=== PATIENT | female | born 1950 | race Caucasian/White ===

== ENCOUNTER 2018-02-02 15:15 | Inpatient (IN) ==
[2018-02-02] MEDS ORDERED: ONDANSETRON 4 MG/2 ML VIAL IV STA (16:33)
[2018-02-02] MEDS ORDERED: KETOROLAC 30 MG/1 ML VIAL IV STA (16:33)
[2018-02-02] MEDS ORDERED: SODIUM CHLORIDE 0.9% 1,000 ML IV STA (16:33)
[2018-02-02] MEDS ORDERED: cefTRIAXone 1,000 MG in SODIUM CHLORIDE 0.9% 100 ML IV STA (16:56)
[2018-02-02 17:33] LABS: Basophils % 0.6 % (0.0-0.8); Eosinophils # 0.1 10*3/uL (0.0-0.87); Eosinophils % 1.7 % (0.00-10.9); Hematocrit 22.2 VOL% (35.7-47.0); Immature Granulocytes % 0.3 %; Immature Granulocytes Absolute 0.01 #; Lymphocytes # 0.8 10*3/uL (1.4-4.0); Lymphocytes % 21.2 % (21.3-54.2); Mean Corpuscular HGB Conc 28.4 GM/DL (32-36); Mean Corpuscular Hemoglobin 21 PG (27-34); Mean Corpuscular Volume 73.5 FL (87-102); Mean Platelet Volume 10.5 FL (9.6-12.0); Monocytes # 0.5 10*3/uL (0.11-0.8); Monocytes % 13.6 % (1.7-12.7); Neutrophils # 2.2 10*3/uL (1.4-7.4); Neutrophils % 62.6 % (38.7-73.9); Platelet Count 97 T/CUMM (130-400); Red Blood Count 3.02 MC/CUMM (3.8-5.5); Red Cell Distribution Width 18.2 % (9.3-17.3); White Blood Count 3.5 T/CUMM (4-12)
[2018-02-02 17:37] LABS: Hemoglobin 6.3 GM/DL (12.0-16.0)
[2018-02-02 17:40] LABS: INR 1.1; PT Patient Result 11.5 SECS
[2018-02-02 17:50] LABS: Eosinophils 1 % (0-10); Hypochromasia 2+; Lymphocytes 26 % (20-55); Platelet Estimate Decreased; Segmented Neutrophils 67 % (50-85); Total Cells Counted 100
[2018-02-02 17:56] LABS: Alanine Aminotransferase 22 U/L (13-56); Alkaline Phosphatase 88 U/L (45-117); Aspartate Amino Transferase 35 U/L (0-37); Blood Urea Nitrogen 13 MG/DL (7-18); Calcium 7.7 MG/DL (8.5-10.1); Glucose 107 MG/DL (74-106); Osmolality,Calculated 282.1 MOS/KG (273-304); Potassium 4.2 MMOL/L (3.5-5.1); Sodium 142 MMOL/L (136-145); Total Protein 6.6 G/DL (6.4-8.3)
[2018-02-02] MEDS ORDERED: SODIUM CHLORIDE 0.9% 1,000 ML IV PRN (18:26)
[2018-02-02 18:27] LABS: Folate 17.5 NG/ML (5.4-24.0); Vitamin B12 823 PG/ML (211-911)
[2018-02-02] MEDS ORDERED: MORPHINE 4 MG/1 ML VIAL IV PRN (18:27)
[2018-02-02] MEDS ORDERED: SODIUM CHLORIDE 0.9% 1,000 ML IV SCH (18:30)
[2018-02-02 19:47] LABS: Apearance,Urine CLOUDY (Clear); Bilirubin,Urine Negative (Negative); Blood, Urine Negative (Negative); Glucose,Urine (UA) Negative (Negative); Hyaline Casts,Urine 19 /LPF (0-3); Ketones,Urine Negative (Negative); Nitrite,Urine Negative (Negative); Protein,Urine 100 MG/DL; RBC,Urine 1 /HPF (0-4); Squamous Epithelial Cell,Urine Occasional /HPF (0-10); Urine Color Dark yellow (Yellow); Urine Specific Gravity 1.014 (1.001-1.035); WBC,Urine 4 /HPF (0-6)
[2018-02-02 20:27] LABS: Basophils % 0.6 % (0.0-0.8); Eosinophils # 0.1 10*3/uL (0.0-0.87); Eosinophils % 1.7 % (0.00-10.9); Hematocrit 20.1 VOL% (35.7-47.0); Immature Granulocytes % 0.6 %; Immature Granulocytes Absolute 0.02 #; Lymphocytes # 0.7 10*3/uL (1.4-4.0); Lymphocytes % 19.5 % (21.3-54.2); Mean Corpuscular HGB Conc 29.4 GM/DL (32-36); Mean Corpuscular Hemoglobin 21 PG (27-34); Mean Corpuscular Volume 72.8 FL (87-102); Mean Platelet Volume 10.5 FL (9.6-12.0); Monocytes # 0.4 10*3/uL (0.11-0.8); Monocytes % 11.5 % (1.7-12.7); Neutrophils # 2.3 10*3/uL (1.4-7.4); Neutrophils % 66.1 % (38.7-73.9); Platelet Count 89 T/CUMM (130-400); Red Blood Count 2.76 MC/CUMM (3.8-5.5); Red Cell Distribution Width 18.4 % (9.3-17.3); White Blood Count 3.5 T/CUMM (4-12)
[2018-02-02 20:31] LABS: Hemoglobin 5.9 GM/DL (12.0-16.0)
[2018-02-02 20:44] LABS: Hypochromasia 2+; Platelet Estimate Decreased
[2018-02-02 20:45] LABS: Elliptocytes Few
[2018-02-02 21:30] LABS: Sedimentation Rate-Westergren 17 MM/HR (0-30)
[2018-02-02] MEDS: CALCIUM (CARBONATE)/VITAMIN D 600 MG-400 UNIT TABLET PO SCH (22:01)
[2018-02-03] MEDS ORDERED: ceFAZolin 2,000 MG in PREMIX 1 EACH IV ONE (06:00)
[2018-02-03 06:55] LABS: Basophils # 0.1 10*3/uL (0.0-0.2); Basophils % 1.1 % (0.0-0.8); Eosinophils # 0.1 10*3/uL (0.0-0.87); Eosinophils % 2.8 % (0.00-10.9); Hematocrit 25.4 VOL% (35.7-47.0); Immature Granulocytes % 0.2 %; Immature Granulocytes Absolute 0.01 #; Lymphocytes # 1.3 10*3/uL (1.4-4.0); Lymphocytes % 27.5 % (21.3-54.2); Mean Corpuscular HGB Conc 30.3 GM/DL (32-36); Mean Corpuscular Hemoglobin 23 PG (27-34); Mean Corpuscular Volume 75.1 FL (87-102); Mean Platelet Volume 11.5 FL (9.6-12.0); Monocytes # 0.6 10*3/uL (0.11-0.8); Monocytes % 12.9 % (1.7-12.7); Neutrophils # 2.6 10*3/uL (1.4-7.4); Neutrophils % 55.5 % (38.7-73.9); Red Cell Distribution Width 18.1 % (9.3-17.3)
[2018-02-03] MEDS ORDERED: FAMOTIDINE 20 MG/2 ML VIAL IV ONE (06:56)
[2018-02-03 06:59] LABS: Hemoglobin 7.7 GM/DL (12.0-16.0); Red Blood Count 3.38 MC/CUMM (3.8-5.5); White Blood Count 4.7 T/CUMM (4-12)
[2018-02-03 07:00] LABS: Platelet Count 88 T/CUMM (130-400)
[2018-02-03 07:14] LABS: Albumin 2.6 G/DL (3.4-5.0); Bilirubin,Total 1.7 MG/DL (0.2-1.0); Calcium 7.5 MG/DL (8.5-10.1); Osmolality,Calculated 280.3 MOS/KG (273-304); Potassium 4.1 MMOL/L (3.5-5.1); Total Protein 6.3 G/DL (6.4-8.3)
[2018-02-03 07:35] LABS: Lymphocytes 13 % (20-55); Metamyelocytes 1 %; Platelet Estimate Decreased; Polychromasia Few; Segmented Neutrophils 85 % (50-85); Total Cells Counted 100
[2018-02-03] MEDS ORDERED: LACTULOSE 20 GM/30 ML UDCUP PO PRN (08:42)
[2018-02-03] MEDS ORDERED: NALOXONE 0.4 MG/ML VIAL IV PRN (08:42)
[2018-02-03] MEDS ORDERED: PROMETHAZINE 25 MG/1 ML VIAL IM PRN (08:42)
[2018-02-03] MEDS ORDERED: BISACODYL 10 MG SUPP RECTAL PRN (08:42)
[2018-02-03] MEDS ORDERED: ONDANSETRON 4 MG/2 ML VIAL IV PRN (08:42)
[2018-02-03] MEDS ORDERED: MAGNESIUM HYDROXIDE SUSP 30 ML UDCUP PO PRN (08:42)
[2018-02-03] MEDS ORDERED: MORPHINE 4 MG/1 ML VIAL IV PRN ×2 (08:48→08:57)
[2018-02-03 09:00] LABS: Hemoglobin A1 (Alkaline) 97.9 % (96.5-98.5); Hemoglobin A2 (Alkaline) 2.1 % (1.5-3.5)
[2018-02-03] MEDS: CALCIUM (CARBONATE)/VITAMIN D 600 MG-400 UNIT TABLET PO SCH ×2 (09:00→20:55)
[2018-02-03] MEDS ORDERED: MORPHINE PCA 30 MG/30 ML SYRINGE IV ONE (09:00)
[2018-02-03] MEDS: MORPHINE PCA 30 MG/30 ML SYRINGE IV SCH (09:04)
[2018-02-03] MEDS ORDERED: PROPOFOL 200 MG/20 ML VIAL IV ONE (09:04)
[2018-02-03] MEDS ORDERED: ePHEDrine 50 MG/ML AMP ONE (09:05)
[2018-02-03] MEDS ORDERED: SEVOFLURANE 1 UNIT/15 MINUTE INH ONE (09:05)
[2018-02-03] MEDS ORDERED: MIDAZOLAM 2 MG/2 ML VIAL ONE (09:05)
[2018-02-03] MEDS ORDERED: fentaNYL 100 MCG/2 ML VIAL ONE (09:05)
[2018-02-03] MEDS ORDERED: ONDANSETRON 4 MG/2 ML VIAL ONE (09:06)
[2018-02-03] MEDS ORDERED: LACTATED RINGERS 1,000 ML IV ONE (09:06)
[2018-02-03] MEDS ORDERED: ACETAMINOPHEN 1,000 MG/100 ML VIAL IV ONE (09:06)
[2018-02-03 11:44] LABS: Total Protein 6.4 G/DL (6.4-8.3)
[2018-02-03] MEDS: ESCITALOPRAM 10 MG TABLET PO SCH (14:34)
[2018-02-03] MEDS: PANTOPRAZOLE 40 MG TABLET PO SCH (14:34)
[2018-02-03] MEDS: LOSARTAN 50 MG TABLET PO SCH (14:34)
[2018-02-03] MEDS: ceFAZolin 1,000 MG in SYRINGE 1 EACH IV SCH ×2 (14:35→22:52)
[2018-02-03] MEDS: SODIUM CHLORIDE 0.45% 1,000 ML IV SCH ×3 (20:58→21:00)
[2018-02-04] MEDS: SODIUM CHLORIDE 0.45% 1,000 ML IV SCH ×2 (05:05→17:25)
[2018-02-04 06:01] LABS: Basophils # 0.1 10*3/uL (0.0-0.2); Basophils % 0.7 % (0.0-0.8); Eosinophils # 0.1 10*3/uL (0.0-0.87); Eosinophils % 1.3 % (0.00-10.9); Hematocrit 23.7 VOL% (35.7-47.0); Hemoglobin 7.1 GM/DL (12.0-16.0); Immature Granulocytes % 0.6 %; Immature Granulocytes Absolute 0.05 #; Lymphocytes # 1.1 10*3/uL (1.4-4.0); Lymphocytes % 12.9 % (21.3-54.2); Mean Corpuscular Hemoglobin 23 PG (27-34); Mean Corpuscular Volume 76.9 FL (87-102); Mean Platelet Volume 10.8 FL (9.6-12.0); Monocytes # 1.1 10*3/uL (0.11-0.8); Monocytes % 13.1 % (1.7-12.7); Neutrophils # 6.1 10*3/uL (1.4-7.4); Neutrophils % 71.4 % (38.7-73.9); Red Blood Count 3.08 MC/CUMM (3.8-5.5); White Blood Count 8.6 T/CUMM (4-12)
[2018-02-04 06:03] LABS: Platelet Count 94 T/CUMM (130-400)
[2018-02-04 06:24] LABS: Calcium 7.5 MG/DL (8.5-10.1); Osmolality,Calculated 281.3 MOS/KG (273-304); Potassium 4.1 MMOL/L (3.5-5.1)
[2018-02-04 06:28] LABS: Albumin 2.7 G/DL (3.4-5.0); Bilirubin,Total 1.2 MG/DL (0.2-1.0); Calcium 7.3 MG/DL (8.5-10.1); Osmolality,Calculated 279.4 MOS/KG (273-304)
[2018-02-04] MEDS ORDERED: ALBUTEROL/IPRATROPIUM 3 ML NEB RESP TX PRN (06:53)
[2018-02-04] MEDS: ceFAZolin 1,000 MG in SYRINGE 1 EACH IV SCH (07:02)
[2018-02-04 07:26] LABS: Hepatitis A Ab IgM Quant 0.27 Index; Hepatitis A Ab IgM Result Negative (Negative); Hepatitis B Core IgM Quant < 0.05 Index; Hepatitis B Core IgM Result Negative (Negative); Hepatitis B Surface Ag Quant < 0.10 Index; Hepatitis B Surface Ag Result Negative (Negative); Hepatitis C Virus Ab Quant > 11.00 Index; Hepatitis C Virus Ab Result Positive (Negative)
[2018-02-04] MEDS: CALCIUM (CARBONATE)/VITAMIN D 600 MG-400 UNIT TABLET PO SCH ×2 (09:26→20:36)
[2018-02-04] MEDS: PANTOPRAZOLE 40 MG TABLET PO SCH (09:27)
[2018-02-04] MEDS: ESCITALOPRAM 10 MG TABLET PO SCH (09:27)
[2018-02-04] MEDS: LOSARTAN 50 MG TABLET PO SCH (09:30)
[2018-02-04] MEDS ORDERED: MORPHINE PCA 30 MG/30 ML SYRINGE IV ONE (10:57)
[2018-02-04] MEDS: MORPHINE PCA 30 MG/30 ML SYRINGE IV SCH (11:01)
[2018-02-04] MEDS: FERROUS SULFATE 325 MG TABLET PO SCH (20:36)
[2018-02-05 05:40] LABS: Basophils % 0.4 % (0.0-0.8); Eosinophils # 0.1 10*3/uL (0.0-0.87); Eosinophils % 1.9 % (0.00-10.9); Hematocrit 23.2 VOL% (35.7-47.0); Hemoglobin 6.7 GM/DL (12.0-16.0); Immature Granulocytes % 0.5 %; Immature Granulocytes Absolute 0.03 #; Lymphocytes % 16.7 % (21.3-54.2); Mean Corpuscular HGB Conc 28.9 GM/DL (32-36); Mean Corpuscular Hemoglobin 22 PG (27-34); Mean Corpuscular Volume 76.6 FL (87-102); Monocytes # 0.8 10*3/uL (0.11-0.8); Monocytes % 14.8 % (1.7-12.7); Neutrophils # 3.7 10*3/uL (1.4-7.4); Neutrophils % 65.7 % (38.7-73.9); Red Blood Count 3.03 MC/CUMM (3.8-5.5); Red Cell Distribution Width 18.7 % (9.3-17.3); White Blood Count 5.7 T/CUMM (4-12)
[2018-02-05 05:43] LABS: Platelet Count 77 T/CUMM (130-400)
[2018-02-05] MEDS ORDERED: SODIUM CHLORIDE 0.9% 1,000 ML IV PRN (07:08)
[2018-02-05] MEDS: MORPHINE PCA 30 MG/30 ML SYRINGE IV SCH (09:00)
[2018-02-05] MEDS: CALCIUM (CARBONATE)/VITAMIN D 600 MG-400 UNIT TABLET PO SCH ×2 (09:38→22:08)
[2018-02-05] MEDS: ESCITALOPRAM 10 MG TABLET PO SCH (09:39)
[2018-02-05] MEDS: PANTOPRAZOLE 40 MG TABLET PO SCH (09:39)
[2018-02-05] MEDS: FERROUS SULFATE 325 MG TABLET PO SCH ×2 (09:39→22:08)
[2018-02-05] MEDS: LOSARTAN 50 MG TABLET PO SCH (09:39)
[2018-02-06 05:41] LABS: Basophils % 0.6 % (0.0-0.8); Eosinophils # 0.1 10*3/uL (0.0-0.87); Eosinophils % 2.6 % (0.00-10.9); Hematocrit 29.8 VOL% (35.7-47.0); Immature Granulocytes % 0.6 %; Immature Granulocytes Absolute 0.03 #; Lymphocytes # 0.9 10*3/uL (1.4-4.0); Lymphocytes % 18.3 % (21.3-54.2); Mean Corpuscular HGB Conc 30.2 GM/DL (32-36); Mean Corpuscular Hemoglobin 24 PG (27-34); Mean Corpuscular Volume 79.9 FL (87-102); Mean Platelet Volume 10.5 FL (9.6-12.0); Monocytes # 0.8 10*3/uL (0.11-0.8); Monocytes % 15.1 % (1.7-12.7); Neutrophils # 3.1 10*3/uL (1.4-7.4); Neutrophils % 62.8 % (38.7-73.9); Red Blood Count 3.73 MC/CUMM (3.8-5.5); Red Cell Distribution Width 20.2 % (9.3-17.3)
[2018-02-06 05:45] LABS: Platelet Count 79 T/CUMM (130-400)
[2018-02-06 07:22] LABS: Total Protein (Chem) 6.4 G/DL (6.4-8.3)
[2018-02-06] MEDS ORDERED: PROMETHAZINE 25 MG/1 ML VIAL ONE (07:29)
[2018-02-06] MEDS ORDERED: GLYCOPYRROLATE 0.4 MG/2 ML VIAL ONE (07:29)
[2018-02-06] MEDS ORDERED: MEPERIDINE 50 MG/1 ML VIAL ONE (07:29)
[2018-02-06] MEDS: PANTOPRAZOLE 40 MG TABLET PO SCH (09:22)
[2018-02-06] MEDS: FERROUS SULFATE 325 MG TABLET PO SCH ×2 (09:22→21:28)
[2018-02-06] MEDS: LOSARTAN 50 MG TABLET PO SCH (09:22)
[2018-02-06] MEDS: CALCIUM (CARBONATE)/VITAMIN D 600 MG-400 UNIT TABLET PO SCH ×2 (09:22→21:28)
[2018-02-06 09:24] LABS: Albumin (SPE) 3.4 G/DL (3.2-5.3); Albumin (SPE) Rel % 54.1 %; Alpha 1 (SPE) 0.2 G/DL (0.1-0.4)
[2018-02-06 09:25] LABS: Alpha 1 (SPE) Rel % 3.4 %; Alpha 2 (SPE) 0.7 G/DL (0.4-1.0); Alpha 2 (SPE) Rel % 10.1 %; Beta (SPE) 0.7 G/DL (0.5-1.1); Beta (SPE) Rel % 10.1 %; Gamma (SPE) 1.5 G/DL (0.7-1.7); Gamma (SPE) Rel % 23.3 %
[2018-02-06] MEDS: ESCITALOPRAM 10 MG TABLET PO SCH (12:01)
[2018-02-07 05:30] LABS: Hematocrit 29.9 VOL% (35.7-47.0); Hemoglobin 9.1 GM/DL (12.0-16.0)
[2018-02-07 07:30] LABS: Immuno Free Light Chain Kappa 4.98 MG/DL (0.33-1.94); Immuno Free Light Chain Lambda 3.79 MG/DL (0.57-2.63); Immuno Free Light Chain Ratio 1.31 MG/DL (0.26-1.65)
[2018-02-07] MEDS: CALCIUM (CARBONATE)/VITAMIN D 600 MG-400 UNIT TABLET PO SCH (09:58)
[2018-02-07] MEDS: FERROUS SULFATE 325 MG TABLET PO SCH (09:58)
[2018-02-07] MEDS: LOSARTAN 50 MG TABLET PO SCH (09:58)
[2018-02-07] MEDS: ESCITALOPRAM 10 MG TABLET PO SCH (09:58)
[2018-02-07] MEDS: PANTOPRAZOLE 40 MG TABLET PO SCH (09:58)
[2018-02-07 12:03] VITALS: BP 153/85
== END 2018-02-07 13:34 | disposition home health service (06) | DRG 493 ==
LOC: EDSEX → EDBD → EDUNIT# → N.ED 15:15 → N.EDINP 17:56 → SUATTDRO 17:56 → N.3E 19:11 → N.2W 02-07 13:36 → N.3E 02-07 13:37
PROVIDERS: ADMIT Internal Medicine Cardiovascular Disease; ATTEND Internal Medicine